=== PATIENT | female | born 1945 | race African-American/Black ===

== ENCOUNTER 2022-07-07 18:29 | Emergency (ER) | payer MEDICARE, MEDICAID ==
[~2022-07-07] VITALS: Ht 152.4 cm; Wt 68.0 kg
[~2022-07-07 18:29] MED LIST: ACET-3161 GT; ASPI-1406 PO; LISI40TA13 PO; MAGOXIDE PO; NIFE20CA PO; OMEP20TA23 PO; SOTA80TA PO
[2022-07-07 18:39] VITALS: BP 139/76
[2022-07-07] MEDS ORDERED: MORPHINE SULFATE 4 MG/ML CPJ (NOT FOR IM USE) IV ONE (21:30)
== END 2022-07-07 23:00 | disposition left against medical advice (07) ==
LOC: ER 18:29
DX: R10.9 Unspecified abdominal pain (principal); I10 Essential (primary) hypertension; J45.909 Unspecified asthma, uncomplicated; Z98.890 Other specified postprocedural states; Z93.3 Colostomy status
CPT/HCPCS: 93005; 99283